=== PATIENT | male | born 1995 | race Caucasian/White ===

== ENCOUNTER 2016-08-30 16:27 | Emergency (ER) | payer OTHER ==
[2016-08-30] MEDS ORDERED: oxyCOD/ACETAMIN 5 MG/325 MG TABLET PO STA (17:06)
[2016-08-30] MEDS ORDERED: BUPIVACAINE 0.5% PF 30 ML VIAL SUBQ STA (17:06)
[2016-08-30] MEDS ORDERED: oxyCOD/ACETAMIN 5 MG/325 MG TABLET PO ONE (17:13)
[2016-08-30] MEDS ORDERED: BUPIVACAINE 0.5% PF 30 ML VIAL ONE (17:13)
[2016-08-30] MEDS ORDERED: LORazepam 0.5 MG TABLET PO STA (17:38)
[2016-08-30] MEDS ORDERED: ONDANSETRON ODT 4 MG TABLET TL STA (17:38)
--- NOTE | 2016-08-30 17:38 | ED Physician Documentation ---
History of Present Illness - Stated complaint Stated Complaint: R MID FIG LAC - Chief complaint Chief Complaint: Ext Problem - Additonal information Additional information: hx from pt healthy r handed male lac from saw to R 3rd finger tdap < 10 yr thinks he cut into bone severe pain Review of Systems Skin: reports: Laceration (s) Neurologic: denies: Focal weakness, Numbness PD PAST MEDICAL HISTORY - Present Medications Home Medications: Ambulatory Orders Medication Instructions Recorded Confirmed No Known Home Medications [No 08/30/16 08/30/16 Known Home Medications] - Allergies Allergies/Adverse Reactions: Allergies Allergy/AdvReac Type Severity Reaction Status Date / Time Sulfa (Sulfonamide Allergy Unknown Verified 08/30/16 17:46 Antibiotics) PD ED PE NORMAL - Vitals Vital signs reviewed: Yes - Extremities Extremities: Other (approx 2.5 cm irreg dirty tattered lac along DIP, MSV intact , tested through ROM and no weakness or visible tendon injury, no FB) Results - Vitals Vitals: Vital Signs - 24 hr 08/30/16 16:32 Temperature 36.6 C Heart Rate 66 Respiratory 16 Rate Blood Pressure 143/93 H O2 Saturation 100 Oxygen O2 Source Room air - Rads (name of study) finger Radiology: See rad report (no bony injury, no FB) Procedures - Laceration (location) R third finger Length in cm: 2.5 Wound type: Linear Neurovascular status: Sensory intact, Motor intact Tendon involvement: Tendon intact Anesthesia: Marcaine 0.5%, Volume - enter cc (4), OTH (dig block) Wound Preparation: Irrigated copiously NS (nursing), Wound explored, To the base , Wound edges modified (ragged tattered edges trimmed). No: FB identified Skin layer closure: Nylon, Interrupted, Size #-0 - enter number (4), Sutures - enter # (7) Other: Patient tolerated well (after ativan and dig block), No complications, Neurovascular intact Complexity: Intermediate PD MEDICAL DECISION MAKING - ED course ED course: Pt needed dig block and ativan to allow wound repair Return to work with limitations form completed for pt Departure - Departure Disposition: 01 Home, Self Care Clinical Impression: Finger laceration Qualifiers: Encounter type: initial encounter Qualified Code(s): S61.219A - Laceration without foreign body of unspecified finger without damage to nail, initial encounter Condition: Good Instructions: ED Laceration Hand Comments: Sutures out in 10 days Leave dressing on for two days After that may remove dressing Then gently wash and apply antibiotic ointment twice daily until healed We washed the wound very carefully and trimmed off all the tattered dirty tissue - but despite good wound care some wounds become infected - if you notice any redness or streaking or discharge please come back to the ER Please get your blood pressure rechecked - it was high today
[2016-08-30] MEDS ORDERED: LORazepam 0.5 MG TABLET ONE ×2 (17:40→17:41)
[2016-08-30] MEDS ORDERED: ONDANSETRON ODT 4 MG TABLET ONE (17:40)
--- NOTE | 2016-08-30 18:35 | XRAY Preliminary Report ---
Exam: XR Finger(s) RT IMPRESSION: No evidence of fracture, dislocation or foreign body. [facility] SITE ID: [id number]
--- NOTE | 2016-08-30 18:38 | XRAY Report ---
EXAM: RIGHT THIRD DIGIT RADIOGRAPHY EXAM DATE: 08/30/2016 06:20 PM. CLINICAL HISTORY: Saw injury ? open fx. COMPARISON: None. TECHNIQUE: 3 views. FINDINGS: Bones: Normal. No fracture or bone lesion. Joints: Normal. No subluxations. Soft Tissues: Soft tissue defect distally. IMPRESSION: No evidence of fracture, dislocation or foreign body. [facility] Referring Provider Line: [phone] SITE ID: [id number]
[2016-08-30 19:51] VITALS: BP 114/69
== END 2016-08-30 20:01 | disposition home or self-care (01) ==
LOC: ED 16:27
DX: S61.212A Laceration without foreign body of right middle finger without damage to nail, initial encounter (principal); W31.2XXA Contact with powered woodworking and forming machines, initial encounter
CPT/HCPCS: 12041; 73140; 99283; A9270; Q0162

== ENCOUNTER 2016-09-08 07:00 | Emergency (ER) | payer OTHER ==
[2016-09-08 07:09] VITALS: BP 108/76
--- NOTE | 2016-09-08 07:10 | ED Physician Documentation ---
PD HPI WOUND RECHECK - Stated complaint Stated Complaint: STITCH REMOVAL - Chief complaint Chief Complaint: General - Histroy obtained from History obtained from: Patient - History of Present Illness Location: Right Upper Extremity (finger) Timing - onset: How many days ago (9) Associated symptoms: No: Fever, Redness, Drainage Similar symptoms before: Has not had sx before Recently seen: Emergency Dept (sutured 9 days ago) Review of Systems Constitutional: denies: Fever, Chills Neurologic: denies: Focal weakness, Numbness PD PAST MEDICAL HISTORY - Past Medical History Neuro: Headache/migraine HEENT: Other - Past Surgical History Past Surgical History: No - Present Medications Home Medications: Ambulatory Orders Medication Instructions Recorded Confirmed No Known Home Medications [No 08/30/16 08/30/16 Known Home Medications] - Allergies Allergies/Adverse Reactions: Allergies Allergy/AdvReac Type Severity Reaction Status Date / Time Sulfa (Sulfonamide Allergy Unknown Verified 08/30/16 17:46 Antibiotics) - Social History Does the pt smoke?: Yes Smoking Status: Current every day smoker Does the pt drink ETOH?: Yes Does the pt have substance abuse?: No - Immunizations Immunizations are current?: Yes - POLST Patient has POLST: No PD ED PE NORMAL - Vitals Vital signs reviewed: Yes - General General: Alert and oriented X 3, No acute distress, Well developed/nourished - Derm Derm: Normal color, Warm and dry - Extremities Extremities: Other (finger with intact sutures. Some dry scabbing of it. No signs of infection. ) - Neuro Neuro: No motor deficit, No sensory deficit Results - Vitals Vitals: Vital Signs - 24 hr 09/08/16 07:07 Temperature 36 C L Heart Rate 66 Respiratory 16 Rate Blood Pressure 108/76 O2 Saturation 98 Oxygen O2 Source Room air PD MEDICAL DECISION MAKING - ED course Complexity details: d/w patient (suture removal by nursing. ) Departure - Departure Disposition: 01 Home, Self Care Clinical Impression: Visit for suture removal Condition: Stable Record reviewed to determine appropriate education?: Yes Instructions: ED Wound Check Sutr Remove No Infec Comments: Still protect the wound while fully healing with bandaid/steri-strips or such during work/etc. Some ointment once or twice daily to keep it softer. Recheck if signs of infection.
== END 2016-09-08 07:28 | disposition home or self-care (01) ==
LOC: ED 07:00
DX: S61.219D Laceration without foreign body of unspecified finger without damage to nail, subsequent encounter (principal); X58.XXXD Exposure to other specified factors, subsequent encounter; Z48.02 Encounter for removal of sutures
CPT/HCPCS: 99283